=== PATIENT | female | born 1940 | race Caucasian/White ===

== ENCOUNTER 2017-07-25 15:06 | Emergency (ER) | payer MEDICARE, BC ==
--- NOTE | 2017-07-25 17:12 | RAD ---
AP PELVIS: Indication: Fall with right sided body pain. FINDINGS: Surgical clips are seen in the right lower quadrant of the abdomen and within the pelvis. There is mi ld degenerative arthrosis of both hips. No definite displaced fracture is evident. Overlying bowel ga s slightly limits evaluation of the sacrum. If there is further clinical concern, CT evaluation of th e pelvis may be helpful to evaluate the sacrum for nondisplaced fracture. IMPRESSION: No definite acute osseous abnormality within limitations of the exam. POS: [facility]
--- NOTE | 2017-07-25 17:13 | RAD ---
THREE VIEWS OF THE RIGHT HAND: Comparison: None. History: Fall two weeks ago with pain in the thumb and hand. FINDINGS: Three views of the right hand shows no evidence of acute fracture or dislocation. There is joint spac e narrowing and osteophyte formation surrounding the interphalangeal joints of the fingers. There is also joint space narrowing and osteophyte formation at the first CMC joint. These findings are consis tent with osteoarthritis. Some of these finding in the index may be secondary to erosive osteoarthrit is. 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 POS: [facility]
== END 2017-07-25 16:25 | disposition home or self-care (01) ==
LOC: SCSER 15:06
DX: S70.01XA Contusion of right hip, initial encounter (principal); S30.1XXA Contusion of abdominal wall, initial encounter; S70.11XA Contusion of right thigh, initial encounter; S50.311A Abrasion of right elbow, initial encounter; I10 Essential (primary) hypertension; I25.10 Atherosclerotic heart disease of native coronary artery without angina pectoris; W18.30XA Fall on same level, unspecified, initial encounter
CPT/HCPCS: 72170

== ENCOUNTER 2017-08-25 09:53 | Emergency (ER) | payer MEDICARE, BC | END 2017-08-25 10:19 | disposition home or self-care (01) | LOC: SCSER 09:53 | DX: H10.9 Unspecified conjunctivitis (principal); L03.032 Cellulitis of left toe; I10 Essential (primary) hypertension; I25.10 Atherosclerotic heart disease of native coronary artery without angina pectoris | CPT/HCPCS: 99283 ==

== ENCOUNTER 2017-11-28 13:05 | Emergency (ER) | payer MEDICARE, BC ==
[2017-11-28 13:30] LABS: Bilirubin Negative (Negative); Blood, Urine Small (Negative); Glucose, Urine (Dipstick) Negative (Negative); Leukocyte Large (Negative); Nitrite Negative (Negative); Protein, Urine (Dipstick) Negative (Neg-Trace); Urobilinogen 0.2 mg/dL (0.2-1.0)
[2017-11-28 13:33] LABS: Clarity Hazy (Clear); Specific Gravity, Urine 1.008 (1.002-1.036)
[2017-11-28 13:39] LABS: Bacteria/HPF 2+ HPF (None Seen); WBC/HPF 21-50 HPF (0-3)
== END 2017-11-28 14:15 | disposition home or self-care (01) ==
LOC: SCSER 13:05
DX: N30.90 Cystitis, unspecified without hematuria (principal); E78.5 Hyperlipidemia, unspecified; I25.10 Atherosclerotic heart disease of native coronary artery without angina pectoris; I10 Essential (primary) hypertension
CPT/HCPCS: 81003; 81015; 99283

== ENCOUNTER 2017-12-07 13:04 | Emergency (ER) | payer MEDICARE, BC ==
[2017-12-07 14:04] LABS: Bilirubin Negative (Negative); Blood, Urine Negative (Negative); Clarity Clear (Clear); Glucose, Urine (Dipstick) Negative (Negative); Leukocyte Negative (Negative); Nitrite Negative (Negative); Protein, Urine (Dipstick) Negative (Neg-Trace); Urobilinogen 0.2 mg/dL (0.2-1.0)
[2017-12-07 14:06] LABS: Specific Gravity, Urine 1.006 (1.002-1.036)
== END 2017-12-07 14:40 | disposition home or self-care (01) ==
LOC: SCSER 13:04
DX: R30.0 Dysuria (principal); E78.5 Hyperlipidemia, unspecified; I25.10 Atherosclerotic heart disease of native coronary artery without angina pectoris; I10 Essential (primary) hypertension
CPT/HCPCS: 81003; 99283

== ENCOUNTER 2017-12-28 11:43 | Emergency (ER) | payer MEDICARE, BC ==
[2017-12-28] MEDS ORDERED: Adacel (T-DAP) 0.5 ML VIAL ONE (11:53)
[2017-12-28] MEDS ORDERED: Bacitracin Zinc 1 Packet ONE (11:56)
== END 2017-12-28 12:00 | disposition home or self-care (01) ==
LOC: SCSER 11:43
DX: L03.113 Cellulitis of right upper limb (principal); I10 Essential (primary) hypertension
CPT/HCPCS: 90471; 90715

== ENCOUNTER 2018-01-02 09:28 | Emergency (ER) | payer MEDICARE, BC | END 2018-01-02 09:47 | disposition home or self-care (01) | LOC: SCSER 09:28 | DX: L03.113 Cellulitis of right upper limb (principal); E78.5 Hyperlipidemia, unspecified; I25.10 Atherosclerotic heart disease of native coronary artery without angina pectoris; I10 Essential (primary) hypertension; Z79.899 Other long term (current) drug therapy; Z79.82 Long term (current) use of aspirin | CPT/HCPCS: 99282 ==

== ENCOUNTER 2018-01-10 11:06 | Emergency (ER) | payer MEDICARE, BC | END 2018-01-10 12:20 | disposition home or self-care (01) | LOC: SCSER 11:06 | DX: H92.01 Otalgia, right ear (principal); E78.5 Hyperlipidemia, unspecified; I25.10 Atherosclerotic heart disease of native coronary artery without angina pectoris; I10 Essential (primary) hypertension | CPT/HCPCS: 99282 ==

== ENCOUNTER 2018-02-19 12:41 | Emergency (ER) | payer MEDICARE, BC ==
[2018-02-19 13:19] LABS: Bilirubin Negative (Negative); Blood, Urine Small (Negative); Clarity Cloudy (Clear); Glucose, Urine (Dipstick) Negative (Negative); Leukocyte Large (Negative); Nitrite Negative (Negative); Protein, Urine (Dipstick) Trace mg/dL (Neg-Trace); Specific Gravity, Urine 1.007 (1.002-1.036); Urobilinogen 0.2 mg/dL (0.2-1.0); pH, Urine 5.5 (5.0-9.0)
[2018-02-19 13:30] LABS: WBC/HPF 21-50 HPF (0-3)
[2018-02-19 13:31] LABS: Bacteria/HPF 2+ HPF (None Seen)
== END 2018-02-19 14:01 | disposition home or self-care (01) ==
LOC: SCSER 12:41
DX: N30.00 Acute cystitis without hematuria (principal); E78.5 Hyperlipidemia, unspecified; I25.10 Atherosclerotic heart disease of native coronary artery without angina pectoris; I10 Essential (primary) hypertension; Z79.82 Long term (current) use of aspirin; Z79.899 Other long term (current) drug therapy
CPT/HCPCS: 81003; 81015; 87077; 87086; 87186; 99283

== ENCOUNTER 2018-03-28 12:36 | Emergency (ER) | payer MEDICARE, BC ==
--- NOTE | 2018-03-28 14:37 | RAD ---
CHEST TWO VIEWS: 03/28/2018 HISTORY: Dyspnea. Short of breath. Cough. COMPARISON: 08/22/2016 FINDINGS: There is pulmonary vascular prominence, stable. Stable prominence of the cardiac silhouette. Midlin e sternotomy wires are unchanged. No pneumothorax or pleural fluid. No focal consolidation or alveo lar edema. Coronary arterial stent material and/or calcification noted. IMPRESSION: No acute findings. Stable appearance of the chest. POS: [facility]
== END 2018-03-28 14:06 | disposition home or self-care (01) ==
LOC: SCSER 12:36
DX: J06.9 Acute upper respiratory infection, unspecified (principal); E78.5 Hyperlipidemia, unspecified; I25.10 Atherosclerotic heart disease of native coronary artery without angina pectoris; I10 Essential (primary) hypertension; Z79.899 Other long term (current) drug therapy; Z79.82 Long term (current) use of aspirin
CPT/HCPCS: 71046

== ENCOUNTER 2018-06-07 16:15 | Observation (INO) | payer MEDICARE, BC ==
[2018-06-07 17:06] LABS: Hemoglobin 11.3 g/dL (12.0-16.0); Mean Corpuscular HGB CONC 31.5 g/dL (32.0-36.0); Mean Corpuscular Hemoglobin 30.9 pg (27.0-31.0); Mean Corpuscular Volume 98.3 fL (78.0-98.0); Mean Platelet Volume 10.7 fL (7.4-10.4); Platelet Count 111 thou/uL (130-400); RBC Distribution Width 16.7 % (11.5-14.5); Red Blood Cell (RBC) Count 3.65 mill/uL (4.20-5.40); White Blood Cell (WBC) Count 10.8 thou/uL (4.8-10.8)
[2018-06-07 17:11] LABS: Anisocytosis SLIGHT = 6-15 cells (100X) (0-5/hpf); Band 2 % (5-11); Eosinophils 1 % (0-10); Hypochromia SLIGHT = 6-15 cells (100X) (0-5/hpf); Lymphocytes 7 % (21-51); MDiff Complete? YES; Monocytes 10 % (0-10); Neutrophil 79 % (42-75); Ovalocytes SLIGHT = 2-5 cells (100X) (0-1/hpf); Platelet Morphology Comment Appears Decreased
[2018-06-07 17:14] LABS: ALT (SGPT) 32 U/L (8-55); AST (SGOT) 39 U/L (5-34); Alkaline Phosphatase 85 U/L (40-150); Anion Gap 16 mmol/L (10-20); BUN (Urea Nitrogen) 16 mg/dL (9.8-20.1); Bilirubin, Total 1.9 mg/dL (0.2-1.2); CK (CPK) 148 U/L (29-168); Calc. Creatinine Clearance 0 mL/min (70-130); Calcium 9.4 mg/dL (7.8-10.44); Carbon Dioxide 26 mmol/L (23-31); Chloride 102 mmol/L (98-107); Estimated GFR-MDRD 53; Glucose 111 mg/dL (83-110); Lipase 11 U/L (8-78); Potassium 3.7 mmol/L (3.5-5.1); Sodium 140 mmol/L (136-145)
[2018-06-07] MEDS ORDERED: Nitroglycerin 2% Ointment 1 INCH/1 GM Packet ONE (17:25)
[2018-06-07] MEDS ORDERED: Aspirin Chewable 81 MG TAB ONE (17:25)
[2018-06-07] MEDS ORDERED: Furosemide 20 MG/2 ML VIAL ONE (17:25)
[2018-06-07 17:35] LABS: CKMB 1.2 ng/mL (0-6.6)
--- NOTE | 2018-06-07 18:03 | RAD ---
CHEST ONE VIEW: 06/07/18 HISTORY: Dyspnea. COMPARISON: Radiograph 03/28/18. FINDINGS: The heart size is enlarged. Small effusions. Mild pulmonary edema. No pneumothorax. No acute osseous abnormality. Multiple midline sternotomy wires. IMPRESSION: Findings suggesting decompensated congestive heart failure. POS: [facility]
[2018-06-07 18:08] LABS: Bilirubin Small (Negative); Blood, Urine Moderate (Negative); Glucose, Urine (Dipstick) Negative (Negative); Leukocyte Trace (Negative); Nitrite Negative (Negative); Protein, Urine (Dipstick) > or equal to 300 mg/dL (Neg-Trace); Specific Gravity, Urine 1.015 (1.005-1.030)
[2018-06-07 18:09] LABS: Clarity Hazy (Clear)
[2018-06-07 18:10] LABS: Bacteria/HPF 1+ HPF (None Seen); WBC/HPF 0-3 HPF (0-3)
[2018-06-07] MEDS ORDERED: Acetaminophen 325 MG TAB ONE (22:30)
[2018-06-08 02:06] LABS: Troponin I 0.082 ng/mL (< 0.028)
[2018-06-08] MEDS ORDERED: Furosemide 20 MG/2 ML VIAL ONE (08:16)
[2018-06-08] MEDS ORDERED: Amlodipine 5 MG TAB ONE (08:16)
[2018-06-08] MEDS ORDERED: Aspirin Chewable 81 MG TAB ONE (08:16)
[2018-06-08] MEDS ORDERED: Ondansetron PF 4 MG/2 ML Vial ONE (08:31)
[2018-06-08] MEDS ORDERED: Acetaminophen 325 MG TAB ONE (08:39)
--- NOTE | 2018-06-08 13:26 | CT ---
CT ANGIOGRAM CHEST WITH CONTRAST: Date: 06/08/18 HISTORY: Shortness of breath. Elevated D-Dimer. COMPARISON: Chest radiograph prior day. FINDINGS: CT angiogram chest performed after the intravenous administration of contrast. 3D rendering is provid ed. The pulmonary arteries are mildly dilated. There is no proximal segmental pulmonary arterial filling defect. Heart size is enlarged. There is reflux of contrast in suprahepatic IVC. Left renal arterial stent is in place with an atrophic left kidney, likely vascular in nature. The celiac trunk and superior mese nteric arteries are patent where seen. Heart size is markedly enlarged. No significant pericardial effusion. Extensive interstitial and developing alveolar edema. Moderate right and mild left-sided pleural effu sions. No acute osseous abnormality. Multiple midline sternotomy wires. IMPRESSION: Decompensated congestive heart failure. No pulmonary embolism. POS: [facility]
[2018-06-08] MEDS ORDERED: ISOVUE-370 76%-LOCM 1 ML ONE (13:36)
[2018-06-08 14:02] VITALS: BMI 22.6
[2018-06-08] MEDS ORDERED: Ondansetron ODT 4 MG TAB PO PRN (15:13)
[2018-06-08] MEDS ORDERED: Senokot S 8.6-50 MG TAB PO PRN (15:13)
[2018-06-08] MEDS ORDERED: Ondansetron PF 4 MG/2 ML Vial IVP PRN (15:13)
[2018-06-08] MEDS ORDERED: Furosemide 20 MG/2 ML VIAL SLOW IVP SCH (15:15)
[2018-06-08 15:28] LABS: #Basophils 0.1 thou/uL (0.0-0.2); #Neutrophils 8.8 thou/uL (1.40-6.50); %Basophils 0.5 % (0.0-1.0); %Eosinophils 0.3 % (0.0-10.0); %Lymphocytes 9.5 % (21.0-51.0); %Monocytes 9.3 % (0.0-10.0); %Neutrophils 80.4 % (42.0-75.0); Hemoglobin 10.4 g/dL (12.0-16.0); Mean Corpuscular HGB CONC 33.2 g/dL (32.0-36.0); Mean Corpuscular Hemoglobin 32.1 pg (27.0-31.0); Mean Corpuscular Volume 96.7 fL (78.0-98.0); Mean Platelet Volume 11.3 fL (7.4-10.4); Platelet Count 92 thou/uL (130-400); RBC Distribution Width 15.9 % (11.5-14.5); Red Blood Cell (RBC) Count 3.25 mill/uL (4.20-5.40)
[2018-06-08 15:45] LABS: Anion Gap 14 mmol/L (10-20); BUN (Urea Nitrogen) 21 mg/dL (9.8-20.1); Calc. Creatinine Clearance 52 mL/min (70-130); Calcium 8.6 mg/dL (7.8-10.44); Carbon Dioxide 27 mmol/L (23-31); Chloride 102 mmol/L (98-107); Estimated GFR-MDRD 57; Glucose 102 mg/dL (83-110); Potassium 4.1 mmol/L (3.5-5.1); Sodium 139 mmol/L (136-145)
--- NOTE | 2018-06-08 16:44 | HP ---
CHIEF COMPLAINT: Shortness of breath, left lateral chest pain x4 days. HISTORY OF PRESENT ILLNESS: Ms. Rodriguez is a very pleasant 78-year-old woman with a history of heart failure, coronary artery disease, CABG x3, cardiac stents x2 in August 2016, and hypertension. She presents complaining of intermittent left lower lateral stabbing chest pain that started on Monday evening and woke her from her sleep. The patient states it felt like a stabbing pain, which she rated a 7/10 in severity. She thought it may have been attributed to drinking a lot of cokes due to the carbonation and decided to switch to water. Her symptoms continued and she developed shortness of breath. This prompted her to seek medical attention yesterday and presented to the [facility] ER. She was noted to have low sats, therefore, placed on 2 L of oxygen. She underwent a chest x-ray that showed findings suggesting decompensated CHF with small effusions and mild pulmonary edema. The heart appeared enlarged. Laboratory studies done yesterday were notable for a BNP of 1096.2. Serial troponins were elevated at 0.096, 0.110, and 0.082. The patient was referred for admission for continued management. The patient states she follows with Dr. Oconnell, who she was supposed to see several months ago. She had got a notification for rescheduling of her appointment, which is actually scheduled for this upcoming Monday, June 11, 2018. REVIEW OF SYSTEMS: She denies having any recent cough or hemoptysis. She has not had any fevers, chills, or sweats. She states she has been in her usual state of health up until Monday. She reports having a poor appetite at baseline with minimal clear fluid intake. She reports drinking coffee, a lot of Coke, and tea. She denies having any nausea or vomiting until this morning. She states she was not hungry and forcefully ate breakfast, which made her feel nauseated immediately. No further vomiting since then. Denies having any associated abdominal pain. Denies having any changes with her bowels. She normally suffers from constipation and had a small hard bowel movement yesterday. She does not normally take anything for this as she states she can sometimes experience diarrhea when eating milk products accidentally and prefers to be constipated rather than having loose stools. Denies having any melena or bright red blood per rectum. Denies having any urinary symptoms such as dysuria, hematuria, urgency, or frequency. All other review of systems are negative. Of note, she did experience one episode of epistaxis earlier today, which was attributed to irritation from the nasal cannula. This resolves quickly and has not recurred since. PAST MEDICAL HISTORY: 1. Hypertension. 2. Hypercholesterolemia. 3. Hypothyroidism. 4. Previous smoker. 5. Renal artery stenosis, status post left renal artery stent placement. 6. Mild mitral regurgitation. 7. Status post CABG x3. 8. Status post cardiac stents x2, August 2016. 9. [id number] aortic insufficiency. 10. Chronic kidney disease. 11. Constipation. SOCIAL HISTORY: The patient lives with her daughter. She is fully independent. She is a previous smoker. Denies any alcohol use or illicit drug use. ALLERGIES: 1. SULFA. 2. ACETAMINOPHEN. 3. CEPHALEXIN. 4. CODEINE. 5. HYDROCODONE. 6. LEVOFLOXACIN. 7. MORPHINE. CURRENT MEDICATIONS: 1. Levothyroxine. 2. Calcium carbonate. 3. Allopurinol. 4. Metoprolol. 5. Furosemide. 6. Zetia. 7. Amlodipine. 8. Lisinopril. 9. Famotidine. 10. Atorvastatin. 11. Aspirin. PHYSICAL EXAMINATION: GENERAL: The patient appears well developed, well nourished, in no acute distress. VITAL SIGNS: Temperature 98.2, pulse 68, respirations 20, O2 sats 94% on room air, and blood pressure 148/67. HEENT: Normocephalic and atraumatic. Pupils are equal, round, and reactive to light. Sclerae are without icterus. Oropharynx is clear. NECK: Supple. Full range of motion. LUNGS: Clear to auscultation bilaterally. No tenderness of left lateral chest wall with palpation. CARDIAC: Regular rate and rhythm. ABDOMEN: Soft, nontender, and nondistended. No guarding or rigidity. No renal angle tenderness. EXTREMITIES: No clubbing, cyanosis, or edema. No calf tenderness. NEUROLOGIC: Alert and oriented x3. SKIN: Without rash or jaundice. Pain, 0/10 at present. LABORATORY DATA: White blood count 10.8, hemoglobin 11.3, hematocrit 35.8, platelets 111. Potassium 3.7, sodium 140, BUN 16, creatinine 1.01. GFR 53. Lactic acid 1.7. Total bilirubin 1.9. BNP 1096.2, lipase 11, and albumin 4.0. Urinalysis notable for greater than or equal to 300, moderate blood, urobilinogen 2.0, leukocyte esterase trace, 7 to 10 squamous epithelial cells, and +1 urine bacteria. IMAGING DATA: Chest x-ray on 06/07/2018. Heart size is enlarged. Small effusions. Mild pulmonary edema, but no pneumothorax. Findings suggesting decompensated CHF. IMPRESSION AND PLAN: Ms. Rodriguez is a pleasant 78-year-old woman admitted for management of the following. 1. Shortness of breath and chest pain. Seems to be related to decompensated congestive heart failure. A CT angiogram was done given the elevated D-dimer and low sats, but this did not show any pulmonary embolism. There were findings suggesting decompensated congestive heart failure. Heart size is markedly enlarged with no significant pericardial effusion. Extensive interstitial developing alveolar edema. Moderate right and mid left-sided pleural effusions. The patient is without any clinical signs of fluid overload. Lungs are clear and no peripheral edema present. We will give Lasix 20 mg IV x1. Consult placed with Cardiology and echo requested. 2. Hypertension. Continue home medications and monitor blood pressure. 3. Hyperlipidemia. Resume home medications. 4. Constipation. MiraLAX p.o. daily. 5. Gastrointestinal prophylaxis. 6. Deep venous thrombosis prophylaxis. 7. Full code status. Surrogate decision maker is her daughter, Rhonda Ernst. The patient's case was discussed with Dr. Velázquez, who agrees with plan of care as described above. Job ID: [id number]
[2018-06-08] MEDS: Famotidine/PF 20 mg/2ml Vial SLOW IVP SCH (20:56)
[2018-06-08] MEDS ORDERED: Lisinopril 10 MG TAB PO SCH (21:00)
--- NOTE | 2018-06-09 00:31 | CON ---
DATE OF CONSULTATION: 06/08/2018 INDICATION FOR CONSULTATION: A 78-year-old female with atypical chest pain with history of coronary artery disease and slight abnormalities of the cardiac enzymes. HISTORY OF PRESENT ILLNESS: This is a very pleasant 78-year-old female who does have a history of coronary artery disease. She has undergone cardiac catheterization in the past. She has had stent placements in the past. She believes she may have also had a renal artery stenosis and underwent stent placement at that time also. She has multiple risk factors for progression of disease such as hypertension, hypercholesterolemia. She has had bypass surgery. She also has renal insufficiency and moderate aortic valve regurgitation as well as diastolic dysfunction. She was admitted to the hospital after she had some atypical chest pain which she describes as being sharp, stabbing pains on the left side of her chest along the midaxillary line. She had been undergoing some rehab in the past also due to some arthritis in her neck and she did not have any significant shortness of breath or other associated symptoms with the discomfort, but did have some confusion apparently and was brought to the emergency room and admitted here for further evaluation and treatment. At this time, she remains relatively stable. She has no complaints at this time. She says she has had no further chest pain. Her BNP was elevated at 1096. Her first troponin I was 0.096 and then it increased up to 0.11, is now back down to 0.82 and the MBs have remained normal. At this time, she is relatively comfortable. Her EKG shows a sinus rhythm. Occasionally, she does have bigeminy with a somewhat bradycardic heart rate. On admission, she was about 73 beats per minute, but she has dropped down to low rates with the ventricular bigeminy, but has been relatively asymptomatic. She says she has had irregular beats in the past. PAST MEDICAL HISTORY: Please refer the notes dictated by the nurse practitioner as well as review of systems. SOCIAL HISTORY: Please refer the notes dictated by the nurse practitioner as well as review of systems. FAMILY HISTORY: Please refer the notes dictated by the nurse practitioner as well as review of systems. REVIEW OF SYSTEMS: Please refer the notes dictated by the nurse practitioner as well as review of systems. MEDICATIONS: Please refer the notes dictated by the nurse practitioner as well as review of systems. ALLERGIES: PLEASE REFER THE NOTES DICTATED BY THE NURSE PRACTITIONER WELL REVIEW OF SYSTEMS. LABORATORY DATA: Please refer the notes dictated by the nurse practitioner as well as review of systems. PHYSICAL EXAMINATION: GENERAL: Reveals an elderly female, very pleasant, no acute distress. VITAL SIGNS: Her blood pressure is 130/60, heart rate is 64 and regular, occasional PVCs. She is afebrile. O2 saturations are 96%. Respiratory rate is 20. HEENT: Shows the head to be normocephalic and atraumatic. Carotid pulses are present. Did not hear any significant bruits. CHEST: Clear to auscultation. There were no rales, rhonchi, or wheezing noted. CARDIOVASCULAR: Reveals a regular rate and rhythm with occasional ectopy. CHEST: Clear to auscultation. ABDOMEN: Soft and nontender. Positive bowel sounds are present. She has a well-healed midline surgical incision after median sternotomy. EXTREMITIES: Show no clubbing, cyanosis, or edema. NEUROLOGIC: She appears to be intact. I do not see any gross focal motor deficits. SKIN: Warm and dry. IMPRESSION: 1. Atypical chest pain with slight increase in cardiac enzymes, which still remains indeterminate. We will continue to follow the patient. Her pain is in the left lateral wall in the midaxillary line, which most likely is not compatible with her coronary artery disease. She describes as being a sharp, stabbing pain. She has had no further chest pain since being in the hospital. She appears to be back to her baseline as far as mentation is concerned. 2. Coronary artery disease. She has a history of coronary disease with angioplasty, stent placements, and bypass surgery. Her last echocardiogram that I can see has been in June 2016, 2 years ago, at which time, her ejection fraction was about 45% to 50% with some moderate mitral valve regurgitation and moderate aortic valve regurgitation. While she was here, we will repeat the echocardiogram for further evaluation. She was last seen in the office in September of 2017. At that time, she did not have any new complaints. Her had back in 2017 and I believe she was living alone at that time. Her daughter lives not far away. 3. History of palpitations. This is nothing new for this patient. She has had some monitors in the past and she has had some occasional PVCs. She did have one history of SVT. Previously, she underwent a cardiac catheterization. She has hypercholesterolemia and also she will continue on her present medications. She also has some mitral and aortic valve regurgitation. We will repeat the echocardiogram for further evaluation. She also has chronic kidney disease, but her creatinine appears to be stable at 1.01. We will continue to follow the patient with you, but at this time, she appears to be stable from a cardiac standpoint. We could consider a repeat stress test in this lady prior to discharge or it could be done as an outpatient if there are no other changes in her cardiac enzymes or her symptoms. Job ID: [id number]
[2018-06-09 05:43] LABS: #Eosinphils 0.1 thou/uL (0.0-0.7); #Lymphocytes 0.9 thou/uL (1.20-3.40); #Monocytes 0.9 thou/uL (0.11-0.59); #Neutrophils 6.9 thou/uL (1.40-6.50); %Basophils 0.2 % (0.0-1.0); %Eosinophils 1.2 % (0.0-10.0); %Lymphocytes 10.4 % (21.0-51.0); %Monocytes 10.1 % (0.0-10.0); %Neutrophils 78.1 % (42.0-75.0); Hemoglobin 10.5 g/dL (12.0-16.0); Mean Corpuscular HGB CONC 33.8 g/dL (32.0-36.0); Mean Corpuscular Hemoglobin 32.2 pg (27.0-31.0); Mean Corpuscular Volume 95.3 fL (78.0-98.0); Mean Platelet Volume 10.7 fL (7.4-10.4); Platelet Count 134 thou/uL (130-400); RBC Distribution Width 15.9 % (11.5-14.5); Red Blood Cell (RBC) Count 3.25 mill/uL (4.20-5.40); White Blood Cell (WBC) Count 8.9 thou/uL (4.8-10.8)
[2018-06-09] MEDS ORDERED: Levothyroxine Sodium 25 MCG TAB PO SCH (06:00)
[2018-06-09 06:11] LABS: Anion Gap 15 mmol/L (10-20); BUN (Urea Nitrogen) 21 mg/dL (9.8-20.1); Calc. Creatinine Clearance 44 mL/min (70-130); Calcium 8.8 mg/dL (7.8-10.44); Carbon Dioxide 29 mmol/L (23-31); Chloride 99 mmol/L (98-107); Estimated GFR-MDRD 48; Glucose 103 mg/dL (83-110); Sodium 140 mmol/L (136-145)
[2018-06-09 06:17] LABS: Potassium 2.8 mmol/L (3.5-5.1)
[2018-06-09] MEDS ORDERED: Potassium Chloride 20 MEQ TAB PO SCH ×2 (06:45→10:45)
[2018-06-09] MEDS ORDERED: Potassium Chloride 10 MEQ in Premix Bag 1 BAG IVPB SCH (08:00)
[2018-06-09] MEDS: Famotidine/PF 20 mg/2ml Vial SLOW IVP SCH (08:30)
[2018-06-09] MEDS ORDERED: Aspirin 81 mg Enteric Coated Tablet PO SCH (09:00)
[2018-06-09] MEDS ORDERED: Amlodipine 5 MG TAB PO SCH (09:00)
[2018-06-09] MEDS ORDERED: Ezetimibe 10 MG TAB PO SCH (09:00)
[2018-06-09] MEDS ORDERED: Lisinopril 10 MG TAB PO SCH (09:00)
[2018-06-09] MEDS ORDERED: Furosemide 20 MG TAB PO SCH (09:00)
[2018-06-09] MEDS ORDERED: Calcium Carbonate 500 MG TAB PO SCH (09:00)
[2018-06-09] MEDS ORDERED: Enoxaparin Sodium 30 MG/0.3 ML SYRINGE SC SCH (09:00)
[2018-06-09] MEDS ORDERED: Allopurinol 300 MG TAB PO SCH (09:00)
[2018-06-09] MEDS ORDERED: Acetaminophen 325 MG TAB PO PRN (09:55)
--- NOTE | 2018-06-09 10:25 | PDOC.CTH ---
Cardiology Progress Note - Subjective The pt seen and examined. No overnight events. No cardiac complaints. - Objective Vital Signs Temp Pulse Resp BP BP Pulse Ox 06/09/18 08:30 134/59 L 06/09/18 08:29 61 134/59 L 06/09/18 07:25 98.4 F 61 20 134/59 L 94 L 06/09/18 03:36 98.5 F 69 12 142/67 H 91 L 06/09/18 00:00 98.1 F 76 12 147/65 H 94 L Weight 141 lb 8 oz 06/08/18 06/09/18 06/10/18 06:59 06:59 06:59 Intake Total 860 120 Output Total 900 Balance -40 120 - Physical Examination General/Neuro: alert & oriented x3 Neck: no JVD present Lungs: CTA Heart: RRR Abdomen: soft Extremities: other: (No edema) - Telemetry Telemetry Rhythm: SR - Labs Result Diagrams: 06/09/18 05:00 06/09/18 05:00 Troponin/CKMB CK-MB (CK-2) 1.2 ng/mL (0-6.6) 06/07/18 16:50 Troponin I 0.082 ng/mL (< 0.028) H 06/08/18 01:40 - Assessment/Plan 1. Acute on chronic diastolic HF - improving with Lasix 20mg IV qd, which was changed to PO. On BBlocker, PAMELA, and Lasix. 2. CAD with hx of stent and CABG - stable; On BBlocker, ASA, Statin, 3. S/p SVT - No more SVT events. 4. HTN - well controlled. 5. CKD - stable 6. Hyperlipidemia - on Statin MAR reviewed * From Cardiac standpoint, the pt is stable to d/c home once the pt does not have SOB with RA. * The pt will F/u with Dr Ramos within 10 days. Pt. seen and eval. by me. I agree with the A/P by the [employer]. Chest clear. RRR. Walking without symptoms. O2 being tapered. Ok to d/c if O2 sat stable off O2. See echo report. gjm Review of Systems - Review of Systems Constitutional: reports: no symptoms reported EENTM: reports: no symptoms reported Respiratory: reports: no symptoms reported Cardiac (ROS): reports: no symptoms reported ABD/GI: reports: no symptoms reported : reports: no symptoms reported Musculoskeletal: reports: no symptoms reported Skin: reports: no symptoms reported
[2018-06-09 11:28] VITALS: BP 118/53; TEMP 98.5
[2018-06-09] MEDS ORDERED: Atorvastatin Calcium 40 MG TAB PO SCH (21:00)
--- NOTE | 2018-06-11 04:10 | CON ---
DATE OF CONSULTATION: PRIMARY CARE PHYSICIAN: Dr. Caden Hilton. PRIMARY TELEPHONE TRIAGE NURSE: Dr. Jordan Ramos. REASON FOR CARDIOLOGY CONSULTATION: Decompensated heart failure. HISTORY OF PRESENT ILLNESS: Ms. Rodriguez is a 78-year-old female with significant history of coronary artery disease with CABG x3 in 2014, bare-metal stent placement in August 2016, chronic diastolic heart failure, hypertension, chronic kidney disease type 2, and chronic neck arthritis. On the Monday night, she wake up due to the severe sharp and stabbing pinpoint pain to the left lateral chest wall. She administered Tylenol, in which the patient's condition is better resolved. However, yesterday, she has had intermittent sharp pain or discomfort to the site, and also, she has complained of severe shortness of breath over the few weeks, and yesterday, she thought she is losing her mind and she could not think straight, so she called her daughter who took the patient to the emergency department for further evaluation and treatment. According to family member, she was very confused yesterday. After the patient was given some Lasix at the ER, the patient's condition, especially the breathing condition improved. At this moment, the patient is alert and oriented x4. According the patient's family member, the patient sometimes skip Lasix due to morning physical therapies, exercise, or samaritan, and she forgets to take the medicine in the afternoon or sometimes she took the Lasix middle of the night and she is very exhausted the next day and she forget to take the Lasix, and also she has not exercised well since February 2017 as the patient's around that time. At this moment, the patient denied any chest pain or discomfort to the chest or lateral wall, dizziness, lightheadedness, or any cardiac complaints at this moment. The patient had echocardiogram done in June 2016 with EF of 45% to 50%, mild bilateral atrial enlargement, moderate mitral valve regurgitation, moderate aortic valve regurgitation, moderate tricuspid regurgitation, and moderate pulmonic valve regurgitation. The patient underwent CABG x3 in 2014 with DUEÑAS to LAD and SVG to diagonal 1 and OM. The patient also had a bare-metal stent placement in proximal to mid LAD in August 2016. Also, the cath report shows 30% of stenosis in the MCA, 100% of stenosis in the diagonal 1, 50% of stenosis in proximal left circumflex, 60% of stenosis in the distal left circumflex, and 30% in the proximal RCA. Also, the patient underwent left renal stent in June 2010. PAST MEDICAL HISTORY: 1. Coronary artery disease. 2. Hypertension. 3. Hyperlipidemia. 4. Osteoarthritis. 5. [id number] aortic insufficiency. 6. Chronic diastolic dysfunction. 7. Chronic kidney disease stage 2. 8. Hypothyroidism. 9. Chronic neck arthritis and varicose vein. She wear compression stockings every day. PAST SURGICAL HISTORY: CABG x3 in 2014 with DUEÑAS to LAD, SVG to diagonal 1 and OM; stent placement in the LAD in August 2016; left renal stent placement in June 2010; cholecystectomy; hysterectomy; tonsillectomy; cataract surgery; left fracture secondary to fall in 2015. FAMILY HISTORY: The patient's father due to colon/esophageal cancer at the age of 50s. The patient's mother due to myocardial infarction at the age of 74. SOCIAL HISTORY: She is a . She lives by herself. She quit EtOH and tobacco abuse in 1991. She denies illicit drug abuse. She used to drink at least 3 Coke a day until 1 week ago. She does not do the regular exercise. She does not watch her diet. She usually however meat and fruits. ALLERGIES: PLEASE REFER TO THE PATIENT'S MEDICAL RECORD. SHE IS ALLERGIC TO MILK ALSO, WHICH CAUSES DIARRHEA. HOME MEDICATIONS: 1. Atorvastatin 80 mg once a day. 2. Lisinopril 20 mg once a day. 3. Lasix 20 mg once a day. 4. Toprol 100 mg once a day. 5. Aspirin 81 mg once a day. 6. Levothyroxine 25 mcg once a day. 7. Calcium 500 mg once a day. 8. Allopurinol 300 mg once a day. 9. Pepcid 40 mg once a day. 10. Norvasc 5 mg once a day. 11. Lisinopril 10 mg once a day. 12. Zetia 5 mg once a day. REVIEW OF SYSTEMS: Twelve-point review of systems negative unless otherwise mentioned in the HPI. She sleeps on the recliner or sofa due to severe gag reflex, which causes worsening shortness of breath when she sleeps on the supine position or lying flat. PHYSICAL EXAMINATION: VITAL SIGNS: Blood pressure 148/67; temperature 98.2; pulse is 68, sinus rhythm; respiratory rate 20; and O2 saturation 94% with 2 L nasal cannula. GENERAL: The patient is alert and oriented x4, not in acute distress. HEENT: Normocephalic and atraumatic. Eyes, extraocular muscle movement intact. ENT and mouth, oral and nasal mucosa moist without lesion. NECK: Normal range of motion. Neck is supple. No JVD. RESPIRATORY: Clear to auscultate bilaterally, but diminished at the bases. CARDIOVASCULAR: Regular rate and rhythm with occasional skipping beats. There is significant murmur to the apex area. 2+ pulses in bilateral upper and lower extremities. No edema in the lower extremities. SKIN: Warm and dry. No lesion, rash, or erythema noticed. ABDOMEN: Soft, nontender. No mass to palpitate. Bowel sounds are present. MUSCULOSKELETAL: The patient is able to move all extremities without difficulty. The patient denied claudication. NEUROLOGIC: The patient is alert and oriented x4 at this moment and nonfocal. PSYCHIATRIC: The patient's mood is appropriate. DIAGNOSTIC STUDIES: 12-lead EKG at the ER shows normal sinus rhythm; anterior infarct, only one lead; heart rate 73. Chest x-ray shows decompensated congestive heart failure, but other than that no acute abnormality. The patient had CTA chest and thoracic due to elevated D-dimer, which shows no pulmonary embolism; however, showing decompensated congestive heart failure. Echocardiogram was ordered and the result is pending at this moment. LABORATORY DATA: WBC 11.0, hemoglobin 10.4, hematocrit 31.4, platelets 92. D-dimer 0.88. Sodium 140, potassium 3.7, BUN is 16, creatinine 1.01, glucose 111. Lactic acid is 1.7. AST 39, ALT 32. CK-MB 1.2. Troponin 0.096, 0.110, 0.082. BNP 1096. ASSESSMENT AND PLAN: 1. Acute on chronic heart failure. Most likely, the patient is having diastolic dysfunction. Echocardiogram was ordered and the result is pending at this moment. Her condition is stable after the patient received 2 doses of Lasix IV at the ER. She is on Lasix 20 mg p.o. daily and she is on PAMELA inhibitor 20 mg once a day. She is on the beta-tramaine, which we would like to resume with low dose for at this moment. 2. Atypical chest pain. Symptom the patient describes is most likely from musculoskeletal in nature. Tylenol improved the patient's discomfort. The 12-lead EKG has not showed any ST-segment change or T-wave inversion. We would like to continue to monitor on the telemetry at this moment. 3. Coronary artery disease with history of coronary artery angioplasty status. The patient's condition is stable at this moment. She is on the telemetry. The patient is on aspirin 81 mg once a day, atorvastatin 80 mg once a day. At this moment, we would like to go ahead to resume the beta-tramaine with low dose. 4. Hypertension. The patient's blood pressure is slightly elevated. Again, we would likely resume the patient's beta-tramaine. 5. History of moderate mitral valve regurgitation. The patient's echocardiogram in June 2016 shows moderate mitral valve regurgitation. The patient has echocardiogram ordered. We are waiting for the results at this moment. The patient is asymptomatic. 6. Chronic kidney disease. The patient's renal function level is stable at this moment. We would like to continue to monitor. Thank you for allowing the Cardiology Service to participate in the care of this patient. We will follow along the care team and make further recommendations as appropriate. Job ID: [id number]
--- NOTE | 2018-06-11 13:39 | DIS ---
DATE OF ADMISSION: 06/07/2018 DATE OF DISCHARGE: 06/09/2018 DISCHARGE DIAGNOSES: 1. Acute hypoxic respiratory failure. 2. Acute on chronic diastolic congestive heart failure. 3. Non-ST segment elevation myocardial infarction type 2 secondary to demand ischemia. 4. Hypertension. 5. Hyperlipidemia. 6. Hypokalemia. HISTORY OF PRESENT ILLNESS: This patient is a 78-year-old female, who presented to [facility] ER with complaints of shortness of breath and chest pain over several days prior to her presentation. The patient had a chest x-ray showing some evidence of decompensated heart failure with some pulmonary edema. BNP was 1096 and troponins were borderline elevated at 0.096, 0.011, and 0.082. The patient was subsequently admitted to observation status for chest pain and decompensated failure. She responded well. HOSPITAL COURSE: The patient responded well to IV Lasix and her breathing improved. Her CT was reviewed, showed no evidence of pulmonary embolus. She was seen in consultation by Cardiology, who recommended repeat echocardiogram. This revealed EF of 60% to 65% with diastolic dysfunction and restrictive filling pattern, was [id number] MR, moderate AR, moderate TR, and mild [place] were noted. The patient had some hypokalemia secondary to the diuresis, which was treated with supplementation. Cardiology felt the patient was stable for discharge and that her symptoms were atypical of angina. However, they did recommend the patient have outpatient followup to consider the possibility of stress testing at that time. PHYSICAL EXAMINATION: VITAL SIGNS: On the day of discharge, temperature is 98.5, pulse 65, respirations 12, O2 saturation 96% on room air, and BP 118/53. GENERAL: The patient is cooperative. HEART: Regular without murmurs. LUNGS: Clear bilaterally. ABDOMEN: Benign. EXTREMITIES: No edema. DISPOSITION: The patient is discharged home. ACTIVITY: She is to have activity as tolerated. DIET: She will be on a heart healthy, low-sodium diet. DISCHARGE MEDICATIONS: She will be on; 1. Atorvastatin 80 mg daily. 2. Lisinopril 20 mg q.a.m. 3. Metoprolol 100 mg daily. 4. Aspirin 81 mg daily. 5. Levothyroxine 25 mcg daily. 6. Calcium 500 mg daily. 7. Allopurinol 300 mg daily. 8. Pepcid 40 mg at bedtime. 9. Amlodipine 5 mg daily. 10. Lisinopril 10 mg at bedtime. 11. Metoprolol 100 mg at bedtime. 12. Zetia 5 mg daily. 13. Lasix 20 mg p.o. daily. 14. She was instructed on daily weights and titrating her Lasix appropriately. FOLLOWUP: She is to follow up with Dr. Bryant and Dr. Caden Hilton. She can return to the Emergency Department should she have any problems prior to that time. Job ID: [id number]
== END 2018-06-09 13:31 | disposition home or self-care (01) ==
LOC: SCSER 16:15 → ERHOLD 18:41 → 2SW 06-08 13:52
PROVIDERS: ADMIT Family Medicine; ATTEND Family Medicine
DX: I13.0 Hypertensive heart and chronic kidney disease with heart failure and stage 1 through stage 4 chronic kidney disease, or unspecified chronic kidney disease (principal); N18.2 Chronic kidney disease, stage 2 (mild); I50.33 Acute on chronic diastolic (congestive) heart failure; I25.10 Atherosclerotic heart disease of native coronary artery without angina pectoris; E78.00 Pure hypercholesterolemia, unspecified; I34.0 Nonrheumatic mitral (valve) insufficiency; I35.1 Nonrheumatic aortic (valve) insufficiency; E03.9 Hypothyroidism, unspecified; K59.00 Constipation, unspecified; M19.90 Unspecified osteoarthritis, unspecified site; Z95.1 Presence of aortocoronary bypass graft; Z95.5 Presence of coronary angioplasty implant and graft; Z87.891 Personal history of nicotine dependence; Z95.820 Peripheral vascular angioplasty status with implants and grafts; Z88.2 Allergy status to sulfonamides; Z88.5 Allergy status to narcotic agent; Z88.1 Allergy status to other antibiotic agents; Z90.89 Acquired absence of other organs; Z91.011 Allergy to milk products; Z79.82 Long term (current) use of aspirin; Z79.899 Other long term (current) drug therapy; Z88.0 Allergy status to penicillin
CPT/HCPCS: 71045; 71275; 80048 ×2; 80053; 82550; 82553; 83605; 83690; 83880; 84484 ×3; 85025 ×3; 85379; 87086; 87804 ×2; 93005; 93306; 94760; 96374; 96375; 96376 ×3; 99285; G0378 ×2; 36415; 36416; 81003; 81015; J1650; J1940; J2405; J3480; Q9966; S0028

== ENCOUNTER 2020-08-23 15:41 | Inpatient (IN) | payer MEDICARE, BC ==
[2020-08-23] MEDS ORDERED: Acetaminophen 325 MG TAB PO PRN (17:12)
[2020-08-23] MEDS ORDERED: Senokot S 8.6-50 MG TAB PO PRN (17:12)
[2020-08-23] MEDS ORDERED: Acetaminophen 650 MG Suppository PR PRN (17:12)
[2020-08-23] MEDS ORDERED: Nitroglycerin 0.4 MG TAB (25 Tab Bottle) SL PRN (17:12)
[2020-08-23] MEDS ORDERED: Sodium Chloride 0.45% 1,000 ML IV SCH (17:45)
[2020-08-23 18:03] LABS: Lactic Acid 1.4 mmol/L (0.5-2.2)
[2020-08-23 18:05] LABS: Magnesium 1.8 mg/dL (1.6-2.6)
[2020-08-23 18:28] LABS: CKMB 2.9 ng/mL (0-6.6)
[2020-08-23] MEDS ORDERED: Magnesium 2 GM/50 ML 2 GM in Premix Bag 1 BAG IVPB SCH (19:30)
[2020-08-23] MEDS ORDERED: Famotidine 20 MG TAB PO SCH (21:00)
[2020-08-23] MEDS: Lisinopril 10 MG TAB PO SCH (21:05)
[2020-08-23] MEDS: Allopurinol 300 MG TAB PO SCH (21:06)
[2020-08-23] MEDS: Atorvastatin Calcium 40 MG TAB PO SCH (21:06)
[2020-08-23] MEDS: Famotidine 20 MG TAB PO SCH (21:10)
[2020-08-24 05:09] LABS: #Eosinphils 0.2 thou/uL (0.0-0.7); #Lymphocytes 1.5 thou/uL (1.20-3.40); #Monocytes 0.6 thou/uL (0.11-0.59); #Neutrophils 3.7 thou/uL (1.40-6.50); %Basophils 0.2 % (0.0-1.0); %Eosinophils 2.6 % (0.0-10.0); %Lymphocytes 25.5 % (21.0-51.0); %Monocytes 9.8 % (0.0-10.0); Hemoglobin 11.3 g/dL (12.0-16.0); Mean Corpuscular HGB CONC 32.3 g/dL (32.0-36.0); Platelet Count 137 thou/uL (130-400); RBC Distribution Width 13.8 % (11.5-14.5); Red Blood Cell (RBC) Count 3.76 mill/uL (4.20-5.40)
[2020-08-24 05:34] LABS: ALT (SGPT) 30 U/L (8-55); AST (SGOT) 37 U/L (5-34); Albumin 3.4 g/dL (3.4-4.8); Alkaline Phosphatase 147 U/L (40-110); Bilirubin, Direct 0.4 mg/dL (0.1-0.3); Bilirubin, Total 0.7 mg/dL (0.2-1.2)
[2020-08-24 05:36] LABS: Anion Gap 10 mmol/L (10-20); BUN (Urea Nitrogen) 13 mg/dL (9.8-20.1); Calc. Creatinine Clearance 46 mL/min (70-130); Calcium 8.3 mg/dL (7.8-10.44); Carbon Dioxide 28 mmol/L (23-31); Cardiac Risk 2.8 (Less than 4.5); Chloride 107 mmol/L (98-107); Cholesterol 84 mg/dl (< 200 Desired); Glucose 88 mg/dL (83-110); HDL Cholesterol 30 mg/dL (>60 Neg Risk); LDL Cholesterol, Calculated 35 mg/dL; Lipase 32 U/L (8-78); Potassium 3.8 mmol/L (3.5-5.1); Sodium 141 mmol/L (136-145); Triglycerides 93 mg/dL (Less than 150)
[2020-08-24] MEDS: Levothyroxine Sodium 25 MCG TAB PO SCH (06:01)
[2020-08-24] MEDS: Aspirin 81 mg Enteric Coated Tablet PO SCH (08:36)
[2020-08-24] MEDS: Lisinopril 20 MG TAB PO SCH (08:36)
[2020-08-24] MEDS: Amlodipine 5 MG TAB PO SCH (08:37)
[2020-08-24] MEDS: Ezetimibe 10 MG TAB PO SCH (08:37)
[2020-08-24] MEDS: Allopurinol 300 MG TAB PO SCH ×2 (08:37→20:13)
[2020-08-24] MEDS ORDERED: Famotidine 20 MG TAB PO SCH (09:00)
[2020-08-24 10:31] LABS: CKMB 2.3 ng/mL (0-6.6)
[2020-08-24 17:51] VITALS: BMI 20.5
[2020-08-24] MEDS: Atorvastatin Calcium 40 MG TAB PO SCH (20:13)
[2020-08-24] MEDS: Lisinopril 10 MG TAB PO SCH (20:14)
[2020-08-24] MEDS: Famotidine 20 MG TAB PO SCH (20:14)
[2020-08-25] MEDS: Levothyroxine Sodium 25 MCG TAB PO SCH (05:23)
[2020-08-25] MEDS: Allopurinol 300 MG TAB PO SCH ×2 (06:43→20:36)
[2020-08-25] MEDS: Aspirin 81 mg Enteric Coated Tablet PO SCH (06:43)
[2020-08-25] MEDS: Lisinopril 20 MG TAB PO SCH (06:43)
[2020-08-25] MEDS: Amlodipine 5 MG TAB PO SCH (06:43)
[2020-08-25] MEDS: Ezetimibe 10 MG TAB PO SCH (06:43)
[2020-08-25] MEDS ORDERED: Lidocaine 1% (PF) 30 ML VIAL ONE (06:44)
[2020-08-25] MEDS ORDERED: Heparin 10,000 UNITS/ 10 ML VIAL ONE (06:44)
[2020-08-25] MEDS ORDERED: Sodium Chloride 0.9% 1,000 ML IV SCH ×2 (06:45→09:15)
[2020-08-25] MEDS ORDERED: Midazolam HCl 2 mg/2 ml Vial ONE (07:40)
[2020-08-25] MEDS ORDERED: Fentanyl 100 MCG/2 ML VIAL ONE (07:41)
[2020-08-25] MEDS ORDERED: Bivalirudin 250 MG VIAL ONE (08:33)
[2020-08-25] MEDS ORDERED: Iopamidol 370 76% 100 ML VIAL ONE (08:47)
[2020-08-25] MEDS ORDERED: Iopamidol 370 76% 50 ML VIAL FS ONE (08:47)
[2020-08-25] MEDS: Atorvastatin Calcium 40 MG TAB PO SCH (20:35)
[2020-08-25] MEDS: Famotidine 20 MG TAB PO SCH (20:36)
[2020-08-25] MEDS: Lisinopril 10 MG TAB PO SCH (20:36)
[2020-08-26 05:39] LABS: Anion Gap 11 mmol/L (10-20); BUN (Urea Nitrogen) 11 mg/dL (9.8-20.1); Calc. Creatinine Clearance 52 mL/min (70-130); Calcium 8.4 mg/dL (7.8-10.44); Carbon Dioxide 25 mmol/L (23-31); Chloride 107 mmol/L (98-107); Glucose 86 mg/dL (83-110); Potassium 4.2 mmol/L (3.5-5.1); Sodium 139 mmol/L (136-145)
[2020-08-26] MEDS: Levothyroxine Sodium 25 MCG TAB PO SCH (05:44)
[2020-08-26 06:01] LABS: Free T4 (Free Thyroxine) 1.05 ng/dL (0.70-1.48); Thyroid Stimulating Hormone 2.3151 uIU/mL (0.35-4.94)
[2020-08-26] MEDS: Aspirin 81 mg Enteric Coated Tablet PO SCH (07:50)
[2020-08-26] MEDS: Amlodipine 5 MG TAB PO SCH (07:50)
[2020-08-26] MEDS: Lisinopril 20 MG TAB PO SCH (07:50)
[2020-08-26] MEDS: Ezetimibe 10 MG TAB PO SCH (07:51)
[2020-08-26] MEDS: Allopurinol 300 MG TAB PO SCH ×2 (07:52→20:30)
[2020-08-26] MEDS: Famotidine 20 MG TAB PO SCH (20:30)
[2020-08-26] MEDS: Atorvastatin Calcium 40 MG TAB PO SCH (20:30)
[2020-08-26] MEDS: Lisinopril 10 MG TAB PO SCH (20:30)
[2020-08-27] MEDS: Levothyroxine Sodium 25 MCG TAB PO SCH (05:43)
[2020-08-27] MEDS: Allopurinol 300 MG TAB PO SCH (07:55)
[2020-08-27] MEDS: Amlodipine 5 MG TAB PO SCH (07:55)
[2020-08-27] MEDS: Ezetimibe 10 MG TAB PO SCH (07:55)
[2020-08-27] MEDS: Aspirin 81 mg Enteric Coated Tablet PO SCH (07:55)
[2020-08-27] MEDS: Lisinopril 20 MG TAB PO SCH (07:56)
[2020-08-27 08:07] VITALS: BP 154/70; TEMP 98
== END 2020-08-27 09:40 | disposition home or self-care (01) | DRG 281 ==
LOC: 2SW 15:44 → OBSVTOIN 08-24 19:04
PROVIDERS: ADMIT Internal Medicine; ATTEND Internal Medicine
PROC: 4A023N7 Measurement of Cardiac Sampling and Pressure, Left Heart, Percutaneous Approach (ICD-10-PCS; principal; 2020-08-25)
PROC: B2131ZZ Fluoroscopy of Multiple Coronary Artery Bypass Grafts using Low Osmolar Contrast (ICD-10-PCS; 2020-08-25)
PROC: B2111ZZ Fluoroscopy of Multiple Coronary Arteries using Low Osmolar Contrast (ICD-10-PCS; 2020-08-25)
DX: R07.89 Other chest pain (principal); I21.A1 Myocardial infarction type 2; I13.0 Hypertensive heart and chronic kidney disease with heart failure and stage 1 through stage 4 chronic kidney disease, or unspecified chronic kidney disease; E87.0 Hyperosmolality and hypernatremia; N17.9 Acute kidney failure, unspecified; I50.32 Chronic diastolic (congestive) heart failure; I25.10 Atherosclerotic heart disease of native coronary artery without angina pectoris; E03.9 Hypothyroidism, unspecified; E83.42 Hypomagnesemia; N18.2 Chronic kidney disease, stage 2 (mild); K59.00 Constipation, unspecified; E78.00 Pure hypercholesterolemia, unspecified; M19.90 Unspecified osteoarthritis, unspecified site; I08.0 Rheumatic disorders of both mitral and aortic valves; R00.1 Bradycardia, unspecified; I83.90 Asymptomatic varicose veins of unspecified lower extremity; D53.9 Nutritional anemia, unspecified; Z88.2 Allergy status to sulfonamides; Z88.1 Allergy status to other antibiotic agents; Z88.0 Allergy status to penicillin; Z88.5 Allergy status to narcotic agent; Z91.011 Allergy to milk products; Z79.82 Long term (current) use of aspirin; Z79.899 Other long term (current) drug therapy; Z95.1 Presence of aortocoronary bypass graft; Z90.710 Acquired absence of both cervix and uterus; Z90.49 Acquired absence of other specified parts of digestive tract; Z90.89 Acquired absence of other organs; Z95.5 Presence of coronary angioplasty implant and graft; Z87.891 Personal history of nicotine dependence; Z82.49 Family history of ischemic heart disease and other diseases of the circulatory system
CPT/HCPCS: 36415; 71045; 80048; 80053; 80061; 80076; 81003; 82553; 83605; 83690; 83735; 83880; 84439; 84443; 84481; 84484; 85025; 85347; 93005; 93010; 93459; 93571; 94760; 96365; 99152; 99153; C1769; G0378; J0153; J0583; J1644; J2001; J2250; J3010; J3475; Q9967

== ENCOUNTER 2020-12-22 11:01 | Outpatient (CLI) | payer MEDICARE, BC | END 2020-12-22 11:02 | disposition home or self-care (01) | LOC: BICULT 11:01 | PROVIDERS: ATTEND Internal Medicine Nephrology | DX: N18.30 Chronic kidney disease, stage 3 unspecified (principal) | CPT/HCPCS: 76770 ==

== ENCOUNTER 2021-02-17 17:16 | Inpatient (IN) | payer MEDICARE, BC ==
[2021-02-17 22:22] VITALS: BMI 20.8
[2021-02-17] MEDS ORDERED: Acetaminophen 325 MG TAB PO PRN (23:18)
[2021-02-17] MEDS ORDERED: Calcium Carbonate 500 MG ChewTAB PO PRN (23:18)
[2021-02-17] MEDS ORDERED: Senokot S 8.6-50 MG TAB PO PRN (23:18)
[2021-02-17] MEDS ORDERED: Ondansetron ODT 4 MG TAB PO PRN (23:18)
[2021-02-17] MEDS ORDERED: Nitroglycerin 0.4 MG TAB (25 Tab Bottle) SL PRN (23:25)
[2021-02-17] MEDS ORDERED: Electrolyte Replacement Protocol 1 EACH FS PRN (23:30)
[2021-02-18 01:37] LABS: CKMB 6.1 ng/mL (0-6.6)
[2021-02-18 04:17] LABS: Bacteria/HPF None Seen HPF (None Seen); Bilirubin Negative (Negative); Blood, Urine 1+ (Negative); Clarity Clear (Clear); Glucose, Urine (Dipstick) Normal (Negative); Ketone, Urine Negative (Negative); Leukocyte 75 Leu/uL (Negative); Nitrite Negative (Negative); Protein, Urine (Dipstick) 30 mg/dL (Neg-Trace); RBC/HPF 0-3 HPF (0-3); Specific Gravity, Urine 1.035 (1.002-1.036); Urobilinogen Normal mg/dL (Less than 2); pH, Urine 5.5 (5.0-9.0)
[2021-02-18 04:19] LABS: Urine Culture Reflex No No
[2021-02-18 04:58] LABS: #Eosinphils 0.2 thou/uL (0.0-0.7); #Lymphocytes 0.8 thou/uL (1.20-3.40); #Monocytes 0.6 thou/uL (0.11-0.59); %Basophils 0.5 % (0.0-1.0); %Lymphocytes 9.5 % (21.0-51.0); %Monocytes 6.7 % (0.0-10.0); %Neutrophils 81.4 % (42.0-75.0); Hemoglobin 9.7 g/dL (12.0-16.0); Mean Corpuscular Hemoglobin 31.3 pg (27.0-31.0); Mean Corpuscular Volume 94.9 fL (78.0-98.0); Mean Platelet Volume 10.5 fL (7.4-10.4); Platelet Count 116 thou/uL (130-400); RBC Distribution Width 15.5 % (11.5-14.5); Red Blood Cell (RBC) Count 3.08 mill/uL (4.20-5.40); White Blood Cell (WBC) Count 8.6 thou/uL (4.8-10.8)
[2021-02-18 05:16] LABS: Anion Gap 11 mmol/L (10-20); BUN (Urea Nitrogen) 22 mg/dL (9.8-20.1); Calc. Creatinine Clearance 42 mL/min (70-130); Calcium 8.5 mg/dL (7.8-10.44); Carbon Dioxide 26 mmol/L (23-31); Chloride 105 mmol/L (98-107); Glucose 118 mg/dL (83-110); Potassium 3.5 mmol/L (3.5-5.1); Sodium 138 mmol/L (136-145)
[2021-02-18] MEDS: Atorvastatin Calcium 40 MG TAB PO SCH (09:31)
[2021-02-18] MEDS: Enoxaparin Sodium 40 MG/0.4 ML SYRINGE SC SCH (09:31)
[2021-02-18] MEDS: Furosemide 40 MG/4 ML VIAL SLOW IVP SCH (09:31)
[2021-02-18] MEDS: Ezetimibe 10 MG TAB PO SCH (09:32)
[2021-02-18] MEDS: Levothyroxine Sodium 25 MCG TAB PO SCH (09:32)
[2021-02-18] MEDS: Aspirin 81 mg Enteric Coated Tablet PO SCH (09:32)
[2021-02-18] MEDS: Lisinopril 20 MG TAB PO SCH (11:33)
[2021-02-18] MEDS: Loratadine 10 MG TAB PO SCH (11:33)
[2021-02-18] MEDS: Amlodipine 5 MG TAB PO SCH (11:33)
[2021-02-18] MEDS: Allopurinol 300 MG TAB PO SCH ×2 (11:33→20:28)
[2021-02-18 12:19] LABS: SARS-CoV-2 PCR by NAA Not Detected (NotDetected)
[2021-02-18] MEDS ORDERED: Potassium Chloride 20 MEQ TAB PO SCH (13:15)
[2021-02-18] MEDS ORDERED: Famotidine 20 MG TAB PO SCH (21:00)
[2021-02-19 04:54] LABS: #Eosinphils 0.2 thou/uL (0.0-0.7); #Monocytes 0.7 thou/uL (0.11-0.59); #Neutrophils 6.3 thou/uL (1.40-6.50); %Basophils 0.1 % (0.0-1.0); %Eosinophils 2.8 % (0.0-10.0); %Lymphocytes 12.3 % (21.0-51.0); %Monocytes 7.9 % (0.0-10.0); %Neutrophils 76.8 % (42.0-75.0); Hemoglobin 9.4 g/dL (12.0-16.0); Mean Corpuscular HGB CONC 32.9 g/dL (32.0-36.0); Mean Corpuscular Hemoglobin 30.6 pg (27.0-31.0); Mean Platelet Volume 9.6 fL (7.4-10.4); Platelet Count 129 thou/uL (130-400); RBC Distribution Width 15.5 % (11.5-14.5); Red Blood Cell (RBC) Count 3.08 mill/uL (4.20-5.40); White Blood Cell (WBC) Count 8.2 thou/uL (4.8-10.8)
[2021-02-19 05:13] LABS: Anion Gap 12 mmol/L (10-20); BUN (Urea Nitrogen) 28 mg/dL (9.8-20.1); Calc. Creatinine Clearance 33 mL/min (70-130); Calcium 8.1 mg/dL (7.8-10.44); Carbon Dioxide 24 mmol/L (23-31); Chloride 108 mmol/L (98-107); Glucose 89 mg/dL (83-110); Potassium 3.5 mmol/L (3.5-5.1); Sodium 140 mmol/L (136-145)
[2021-02-19] MEDS ORDERED: Potassium Chloride 20 MEQ TAB PO SCH (06:00)
[2021-02-19] MEDS: Lisinopril 20 MG TAB PO SCH (08:39)
[2021-02-19] MEDS: Levothyroxine Sodium 25 MCG TAB PO SCH (08:39)
[2021-02-19] MEDS: Atorvastatin Calcium 40 MG TAB PO SCH (08:39)
[2021-02-19] MEDS: Loratadine 10 MG TAB PO SCH (08:40)
[2021-02-19] MEDS: Enoxaparin Sodium 40 MG/0.4 ML SYRINGE SC SCH (08:40)
[2021-02-19] MEDS: Furosemide 40 MG/4 ML VIAL SLOW IVP SCH (08:40)
[2021-02-19] MEDS: Ezetimibe 10 MG TAB PO SCH (08:40)
[2021-02-19] MEDS: Amlodipine 5 MG TAB PO SCH (08:40)
[2021-02-19] MEDS: Allopurinol 300 MG TAB PO SCH (08:40)
[2021-02-19] MEDS: Aspirin 81 mg Enteric Coated Tablet PO SCH (08:40)
[2021-02-19 12:10] LABS: Iron 16 ug/dL (50-170); Iron Binding Capacity, Total 231 mcg/dL (265-497)
[2021-02-19 12:31] LABS: Ferritin 274.44 ng/mL (10-291)
[2021-02-19 15:52] VITALS: BP 119/66; TEMP 97.8
[2021-02-19] MEDS ORDERED: Cyanocobalamin 1000 MCG/ML VIAL IM SCH (16:15)
[2021-02-19] MEDS ORDERED: Iron Sucrose Complex 200 MG in Sodium Chloride 0.9% 100 ML IVPB SCH (16:15)
[2021-02-19] MEDS ORDERED: Iron, Sodium Ferric Gluconate 250 MG in Sodium Chloride 0.9% 250 ML 250 ML IVPB SCH (17:00)
== END 2021-02-19 21:38 | disposition home or self-care (01) | DRG 291 ==
LOC: 2NO 20:31
PROVIDERS: ADMIT Internal Medicine; ATTEND Internal Medicine
DX: I13.0 Hypertensive heart and chronic kidney disease with heart failure and stage 1 through stage 4 chronic kidney disease, or unspecified chronic kidney disease (principal); I50.33 Acute on chronic diastolic (congestive) heart failure; Z20.822 Contact with and (suspected) exposure to COVID-19; J96.01 Acute respiratory failure with hypoxia; E78.00 Pure hypercholesterolemia, unspecified; N18.30 Chronic kidney disease, stage 3 unspecified; M19.90 Unspecified osteoarthritis, unspecified site; I25.10 Atherosclerotic heart disease of native coronary artery without angina pectoris; D72.829 Elevated white blood cell count, unspecified; F41.9 Anxiety disorder, unspecified; R79.89 Other specified abnormal findings of blood chemistry; I08.0 Rheumatic disorders of both mitral and aortic valves; Z88.5 Allergy status to narcotic agent; Z88.0 Allergy status to penicillin; Z88.2 Allergy status to sulfonamides; Z88.8 Allergy status to other drugs, medicaments and biological substances; Z88.1 Allergy status to other antibiotic agents; Z91.011 Allergy to milk products; Z79.82 Long term (current) use of aspirin; Z79.890 Hormone replacement therapy; Z79.899 Other long term (current) drug therapy; Z95.1 Presence of aortocoronary bypass graft; Z95.5 Presence of coronary angioplasty implant and graft; Z90.710 Acquired absence of both cervix and uterus; Z90.49 Acquired absence of other specified parts of digestive tract; Z82.49 Family history of ischemic heart disease and other diseases of the circulatory system; Z87.891 Personal history of nicotine dependence
CPT/HCPCS: 36415; 80048; 81001; 82553; 82607; 82728; 82746; 83540; 83550; 83735; 83880; 84443; 85025; 93005; 93010; 93306; 93798; J1650; J1940; J2916; J3420; J7050; Q0162; U0003; U0005

== ENCOUNTER 2021-05-13 14:24 | Inpatient (IN) | payer MEDICARE, BC ==
[2021-05-13 16:16] VITALS: BMI 21.5
[2021-05-13] MEDS ORDERED: Nitroglycerin 0.4 MG TAB (25 Tab Bottle) SL PRN (17:32)
[2021-05-13 17:40] LABS: #Lymphocytes 0.7 thou/uL (1.20-3.40); #Monocytes 0.8 thou/uL (0.11-0.59); #Neutrophils 8.6 thou/uL (1.40-6.50); %Basophils 0.2 % (0.0-1.0); %Eosinophils 0.1 % (0.0-10.0); %Lymphocytes 6.5 % (21.0-51.0); %Monocytes 8.3 % (0.0-10.0); Hemoglobin 9.9 g/dL (12.0-16.0); Mean Corpuscular HGB CONC 32.4 g/dL (32.0-36.0); Mean Corpuscular Hemoglobin 31.6 pg (27.0-31.0); Mean Corpuscular Volume 97.3 fL (78.0-98.0); Mean Platelet Volume 10.1 fL (7.4-10.4); Platelet Count 123 thou/uL (130-400); RBC Distribution Width 15.8 % (11.5-14.5); Red Blood Cell (RBC) Count 3.13 mill/uL (4.20-5.40); White Blood Cell (WBC) Count 10.1 thou/uL (4.8-10.8)
[2021-05-13] MEDS ORDERED: Ondansetron PF 4 MG/2 ML Vial IVP PRN (17:43)
[2021-05-13] MEDS ORDERED: Acetaminophen 325 MG TAB PO PRN (17:43)
[2021-05-13 18:04] LABS: Anion Gap 9 mmol/L (10-20); BUN (Urea Nitrogen) 26 mg/dL (9.8-20.1); Carbon Dioxide 27 mmol/L (23-31); Chloride 107 mmol/L (98-107); Potassium 4.4 mmol/L (3.5-5.1); Sodium 139 mmol/L (136-145)
[2021-05-13 18:05] LABS: ALT (SGPT) 51 U/L (8-55); AST (SGOT) 47 U/L (5-34); Albumin 3.5 g/dL (3.4-4.8); Alkaline Phosphatase 135 U/L (40-110); Bilirubin, Total 1.2 mg/dL (0.2-1.2); Calc. Creatinine Clearance 36 mL/min (70-130); Calcium 8.6 mg/dL (7.8-10.44); Globulin 3.3 g/dL (2.4-3.5); Glucose 107 mg/dL (83-110); Protein, Total 6.8 g/dL (5.8-8.1)
[2021-05-13 18:08] LABS: Troponin I 0.109 ng/mL (< 0.028)
[2021-05-13] MEDS ORDERED: Loratadine 10 MG TAB PO PRN (18:22)
[2021-05-13 19:57] LABS: SARS-CoV-2 NAA Rapid Test Not Detected (NotDetected)
[2021-05-13] MEDS ORDERED: Furosemide 20 MG TAB PO SCH (20:00)
[2021-05-13] MEDS: Amlodipine 5 MG TAB PO SCH (20:39)
[2021-05-13] MEDS: Atorvastatin Calcium 40 MG TAB PO SCH (20:45)
[2021-05-13] MEDS ORDERED: Famotidine 20 MG TAB PO SCH (21:00)
[2021-05-13] MEDS: cefTRIAXone\\ROCEPHIN 1 GM in Sodium Chloride 0.9% 100 ML IVPB SCH (23:45)
[2021-05-13 23:53] LABS: Troponin I 0.107 ng/mL (< 0.028)
[2021-05-14 04:11] LABS: #Lymphocytes 0.8 thou/uL (1.20-3.40); #Monocytes 0.8 thou/uL (0.11-0.59); #Neutrophils 8.7 thou/uL (1.40-6.50); %Basophils 0.2 % (0.0-1.0); %Eosinophils 0.1 % (0.0-10.0); %Lymphocytes 7.4 % (21.0-51.0); %Monocytes 7.7 % (0.0-10.0); %Neutrophils 84.6 % (42.0-75.0); Hemoglobin 9.2 g/dL (12.0-16.0); Mean Corpuscular HGB CONC 33.3 g/dL (32.0-36.0); Mean Corpuscular Hemoglobin 32.2 pg (27.0-31.0); Mean Platelet Volume 10.5 fL (7.4-10.4); Platelet Count 120 thou/uL (130-400); RBC Distribution Width 15.6 % (11.5-14.5); Red Blood Cell (RBC) Count 2.84 mill/uL (4.20-5.40); White Blood Cell (WBC) Count 10.3 thou/uL (4.8-10.8)
[2021-05-14 04:42] LABS: Anion Gap 12 mmol/L (10-20); BUN (Urea Nitrogen) 28 mg/dL (9.8-20.1); Calc. Creatinine Clearance 29 mL/min (70-130); Calcium 8.4 mg/dL (7.8-10.44); Carbon Dioxide 24 mmol/L (23-31); Chloride 104 mmol/L (98-107); Glucose 102 mg/dL (83-110); Magnesium 1.9 mg/dL (1.6-2.6); Sodium 136 mmol/L (136-145)
[2021-05-14 05:03] LABS: Troponin I 0.119 ng/mL (< 0.028)
[2021-05-14] MEDS: Levothyroxine Sodium 25 MCG TAB PO SCH (06:21)
[2021-05-14] MEDS: Ezetimibe 10 MG TAB PO SCH (09:03)
[2021-05-14] MEDS: Amlodipine 5 MG TAB PO SCH ×2 (09:03→21:00)
[2021-05-14] MEDS: Aspirin 81 mg Enteric Coated Tablet PO SCH (09:03)
[2021-05-14] MEDS: Azithromycin 250 MG TAB PO SCH (09:03)
[2021-05-14] MEDS: Famotidine 20 MG TAB PO SCH (09:04)
[2021-05-14] MEDS: Lisinopril 10 MG TAB PO SCH (09:04)
[2021-05-14] MEDS: Allopurinol 300 MG TAB PO SCH (09:04)
[2021-05-14] MEDS ORDERED: Albuterol Sulfate 1.25 MG/3 ML NEB NEB PRN (09:58)
[2021-05-14] MEDS ORDERED: Albuterol Sulfate 1.25 MG/3 ML NEB NEB SCH (13:00)
[2021-05-14] MEDS: Atorvastatin Calcium 40 MG TAB PO SCH (21:00)
[2021-05-14] MEDS: cefTRIAXone\\ROCEPHIN 1 GM in Sodium Chloride 0.9% 100 ML IVPB SCH (23:42)
[2021-05-15 01:27] LABS: Anion Gap 12 mmol/L (10-20); BUN (Urea Nitrogen) 36 mg/dL (9.8-20.1); Calc. Creatinine Clearance 34 mL/min (70-130); Calcium 8.2 mg/dL (7.8-10.44); Carbon Dioxide 23 mmol/L (23-31); Chloride 108 mmol/L (98-107); Glucose 88 mg/dL (83-110); Potassium 3.9 mmol/L (3.5-5.1); Sodium 139 mmol/L (136-145)
[2021-05-15] MEDS ORDERED: Potassium Chloride 20 MEQ TAB PO SCH (04:00)
[2021-05-15 04:26] LABS: #Eosinphils 0.1 thou/uL (0.0-0.7); #Lymphocytes 0.8 thou/uL (1.20-3.40); #Monocytes 0.7 thou/uL (0.11-0.59); #Neutrophils 6.6 thou/uL (1.40-6.50); %Basophils 0.3 % (0.0-1.0); %Eosinophils 1.1 % (0.0-10.0); %Lymphocytes 9.6 % (21.0-51.0); %Monocytes 8.1 % (0.0-10.0); Hemoglobin 8.4 g/dL (12.0-16.0); Mean Corpuscular HGB CONC 33.2 g/dL (32.0-36.0); Mean Corpuscular Volume 96.4 fL (78.0-98.0); Mean Platelet Volume 10.4 fL (7.4-10.4); Platelet Count 134 thou/uL (130-400); RBC Distribution Width 15.5 % (11.5-14.5); Red Blood Cell (RBC) Count 2.62 mill/uL (4.20-5.40); White Blood Cell (WBC) Count 8.1 thou/uL (4.8-10.8)
[2021-05-15 04:51] LABS: Anion Gap 11 mmol/L (10-20); BUN (Urea Nitrogen) 34 mg/dL (9.8-20.1); Calc. Creatinine Clearance 34 mL/min (70-130); Calcium 8.2 mg/dL (7.8-10.44); Carbon Dioxide 23 mmol/L (23-31); Chloride 108 mmol/L (98-107); Glucose 93 mg/dL (83-110); Sodium 138 mmol/L (136-145)
[2021-05-15] MEDS: Levothyroxine Sodium 25 MCG TAB PO SCH (05:02)
[2021-05-15] MEDS: Ezetimibe 10 MG TAB PO SCH (09:30)
[2021-05-15] MEDS: Aspirin 81 mg Enteric Coated Tablet PO SCH (09:30)
[2021-05-15] MEDS: Furosemide 20 MG TAB PO SCH (09:31)
[2021-05-15] MEDS: Famotidine 20 MG TAB PO SCH (09:31)
[2021-05-15] MEDS: Allopurinol 300 MG TAB PO SCH (09:31)
[2021-05-15] MEDS: Lisinopril 10 MG TAB PO SCH (09:31)
[2021-05-15] MEDS: Amlodipine 5 MG TAB PO SCH ×2 (09:31→21:58)
[2021-05-15] MEDS: Azithromycin 250 MG TAB PO SCH (09:31)
[2021-05-15] MEDS: Atorvastatin Calcium 40 MG TAB PO SCH (21:58)
[2021-05-16] MEDS: cefTRIAXone\\ROCEPHIN 1 GM in Sodium Chloride 0.9% 100 ML IVPB SCH (00:50)
[2021-05-16] MEDS: Levothyroxine Sodium 25 MCG TAB PO SCH (06:14)
[2021-05-16] MEDS: Furosemide 20 MG TAB PO SCH (10:03)
[2021-05-16] MEDS: Aspirin 81 mg Enteric Coated Tablet PO SCH (10:03)
[2021-05-16] MEDS: Amlodipine 5 MG TAB PO SCH (10:03)
[2021-05-16] MEDS: Allopurinol 300 MG TAB PO SCH (10:03)
[2021-05-16] MEDS: Lisinopril 10 MG TAB PO SCH (10:04)
[2021-05-16] MEDS: Ezetimibe 10 MG TAB PO SCH (10:04)
[2021-05-16] MEDS: Azithromycin 250 MG TAB PO SCH (10:04)
[2021-05-16] MEDS: Famotidine 20 MG TAB PO SCH (10:04)
[2021-05-16 12:31] VITALS: BP 147/65; TEMP 98.1
== END 2021-05-16 13:09 | disposition home or self-care (01) | DRG 193 ==
LOC: 2NO 16:03
PROVIDERS: ADMIT Internal Medicine; ATTEND Internal Medicine
DX: J18.9 Pneumonia, unspecified organism (principal); Z20.822 Contact with and (suspected) exposure to COVID-19; J96.01 Acute respiratory failure with hypoxia; I50.33 Acute on chronic diastolic (congestive) heart failure; I24.8 Other forms of acute ischemic heart disease; I13.0 Hypertensive heart and chronic kidney disease with heart failure and stage 1 through stage 4 chronic kidney disease, or unspecified chronic kidney disease; I25.10 Atherosclerotic heart disease of native coronary artery without angina pectoris; E03.9 Hypothyroidism, unspecified; M19.90 Unspecified osteoarthritis, unspecified site; E78.5 Hyperlipidemia, unspecified; N18.30 Chronic kidney disease, stage 3 unspecified; E78.00 Pure hypercholesterolemia, unspecified; I08.0 Rheumatic disorders of both mitral and aortic valves; Z88.5 Allergy status to narcotic agent; Z88.0 Allergy status to penicillin; Z88.2 Allergy status to sulfonamides; Z88.6 Allergy status to analgesic agent; Z88.1 Allergy status to other antibiotic agents; Z91.011 Allergy to milk products; Z79.899 Other long term (current) drug therapy; Z79.82 Long term (current) use of aspirin; Z79.890 Hormone replacement therapy; Z95.1 Presence of aortocoronary bypass graft; Z95.5 Presence of coronary angioplasty implant and graft; Z90.710 Acquired absence of both cervix and uterus; Z90.49 Acquired absence of other specified parts of digestive tract; Z90.89 Acquired absence of other organs; Z95.828 Presence of other vascular implants and grafts; Z82.49 Family history of ischemic heart disease and other diseases of the circulatory system; Z87.891 Personal history of nicotine dependence; Z91.14 Patient's other noncompliance with medication regimen
CPT/HCPCS: 36415; 71045; 80048; 80053; 83735; 83880; 84484; 85025; 85379; J0696; J3490; J7620; U0002

== ENCOUNTER 2021-05-17 01:02 | Observation (INO) | payer MEDICARE, BC ==
[2021-05-17 02:14] VITALS: BMI 19.9
[2021-05-17 04:46] LABS: #Basophils 0.1 thou/uL (0.0-0.2); #Eosinphils 0.2 thou/uL (0.0-0.7); #Lymphocytes 0.8 thou/uL (1.20-3.40); #Monocytes 0.6 thou/uL (0.11-0.59); #Neutrophils 4.9 thou/uL (1.40-6.50); %Basophils 0.8 % (0.0-1.0); %Eosinophils 3.3 % (0.0-10.0); %Lymphocytes 11.9 % (21.0-51.0); %Monocytes 9.6 % (0.0-10.0); %Neutrophils 74.5 % (42.0-75.0); Hemoglobin 8.7 g/dL (12.0-16.0); Mean Corpuscular HGB CONC 33.7 g/dL (32.0-36.0); Mean Corpuscular Hemoglobin 31.7 pg (27.0-31.0); Mean Corpuscular Volume 94.1 fL (78.0-98.0); Mean Platelet Volume 9.6 fL (7.4-10.4); Platelet Count 170 thou/uL (130-400); RBC Distribution Width 15.4 % (11.5-14.5); Red Blood Cell (RBC) Count 2.74 mill/uL (4.20-5.40); White Blood Cell (WBC) Count 6.6 thou/uL (4.8-10.8)
[2021-05-17 04:52] LABS: Anion Gap 11 mmol/L (10-20); BUN (Urea Nitrogen) 28 mg/dL (9.8-20.1); Calc. Creatinine Clearance 37 mL/min (70-130); Calcium 8.8 mg/dL (7.8-10.44); Carbon Dioxide 25 mmol/L (23-31); Chloride 109 mmol/L (98-107); Glucose 125 mg/dL (83-110); Magnesium 2.3 mg/dL (1.6-2.6); Potassium 3.8 mmol/L (3.5-5.1); Sodium 141 mmol/L (136-145)
[2021-05-17] MEDS ORDERED: Furosemide 20 MG TAB PO SCH ×2 (08:45→09:00)
[2021-05-17] MEDS ORDERED: Lisinopril 10 MG TAB PO SCH (09:00)
[2021-05-17] MEDS ORDERED: Amlodipine 5 MG TAB PO SCH (09:00)
[2021-05-17] MEDS ORDERED: Aspirin 81 mg Enteric Coated Tablet PO SCH (09:00)
[2021-05-17] MEDS ORDERED: Allopurinol 300 MG TAB PO SCH (09:00)
[2021-05-17] MEDS ORDERED: Levothyroxine Sodium 25 MCG TAB PO SCH (09:00)
[2021-05-17] MEDS ORDERED: Cefdinir 300 MG CAP PO SCH (09:00)
[2021-05-17] MEDS ORDERED: FLU VACC QS2021-22(65YR UP)/PF 240 MCG/0.7 ML SYRINGE IM ONE (09:00)
[2021-05-17] MEDS ORDERED: Azithromycin 250 MG TAB PO SCH (09:00)
[2021-05-17] MEDS ORDERED: Ezetimibe 10 MG TAB PO SCH (09:00)
[2021-05-17 11:39] VITALS: TEMP 97.3
[2021-05-17 16:07] VITALS: BP 121/59
[2021-05-17] MEDS ORDERED: Atorvastatin Calcium 40 MG TAB PO SCH (21:00)
[2021-05-17] MEDS ORDERED: Famotidine 20 MG TAB PO SCH (21:00)
[2021-05-18] MEDS ORDERED: Levothyroxine Sodium 25 MCG TAB PO SCH (06:00)
== END 2021-05-17 16:45 | disposition home or self-care (01) ==
LOC: 2SW 02:07
PROVIDERS: ADMIT Student in an Organized Health Care Education/Training Program; ATTEND Student in an Organized Health Care Education/Training Program
DX: J18.9 Pneumonia, unspecified organism (principal); J96.01 Acute respiratory failure with hypoxia; I13.0 Hypertensive heart and chronic kidney disease with heart failure and stage 1 through stage 4 chronic kidney disease, or unspecified chronic kidney disease; N18.30 Chronic kidney disease, stage 3 unspecified; I50.32 Chronic diastolic (congestive) heart failure; I25.10 Atherosclerotic heart disease of native coronary artery without angina pectoris; E03.9 Hypothyroidism, unspecified; M19.90 Unspecified osteoarthritis, unspecified site; Z87.891 Personal history of nicotine dependence; Z79.2 Long term (current) use of antibiotics; Z79.82 Long term (current) use of aspirin; Z79.899 Other long term (current) drug therapy; Z88.0 Allergy status to penicillin; Z88.1 Allergy status to other antibiotic agents; Z88.2 Allergy status to sulfonamides; Z88.5 Allergy status to narcotic agent; Z91.011 Allergy to milk products; Z95.1 Presence of aortocoronary bypass graft
CPT/HCPCS: 71045; 80048; 83735; 85025; G0378; 36415

== ENCOUNTER 2023-05-22 16:00 | Outpatient (CLI) | payer MEDICARE, BC | END 2023-05-22 16:01 | disposition home or self-care (01) | LOC: SLEEPLAB 16:00 | PROVIDERS: ATTEND Nurse Practitioner Acute Care | DX: G47.33 Obstructive sleep apnea (adult) (pediatric) (principal); E78.5 Hyperlipidemia, unspecified; M54.2 Cervicalgia; I13.10 Hypertensive heart and chronic kidney disease without heart failure, with stage 1 through stage 4 chronic kidney disease, or unspecified chronic kidney disease; N18.9 Chronic kidney disease, unspecified; K76.9 Liver disease, unspecified; R00.1 Bradycardia, unspecified | CPT/HCPCS: 95810 ==

== ENCOUNTER 2023-08-01 16:00 | Outpatient (CLI) | payer MEDICARE | END 2023-08-01 16:01 | disposition home or self-care (01) | LOC: SLEEPLAB 16:00 | PROVIDERS: ATTEND Nurse Practitioner Acute Care | DX: G47.33 Obstructive sleep apnea (adult) (pediatric) (principal) | CPT/HCPCS: 95811 ==

== ENCOUNTER 2025-01-13 21:27 | Inpatient (IN) | payer MEDICARE ==
[~2025-01-13 21:27] MED LIST: Iopamidol-370 76% 500 ML MDV (1 ML CHARGE) ONE
[2025-01-13 21:44] LABS: #Basophils Less than 0.03 10x3/uL (0.0-0.2); #Eosinophils 0.06 10x3/uL (0.0-0.7); #Monocytes 0.58 10x3/uL (0.11-0.59); #Neutrophils 7.15 10x3/uL (1.40-6.50); %Basophils 0.2 % (0.0-1.0); %Eosinophils 0.6 % (0.0-10.0); %Lymphocytes 15.5 % (21.0-51.0); %Monocytes 6.3 % (0.0-10.0); %Neutrophils 77.1 % (42.0-75.0); Hematocrit 30.2 % (36.0-47.0); Hemoglobin 9.8 g/dL (12.0-16.0); Mean Corpuscular Hemoglobin 29.6 pg (27.0-31.0); Mean Corpuscular Volume 91.2 fL (78.0-98.0); Platelet Count 130 10x3/uL (130-400); Red Blood Cell (RBC) Count 3.31 mill/uL (4.20-5.40); White Blood Cell (WBC) Count 9.28 10x3/uL (4.8-10.8)
[2025-01-13 21:58] LABS: INR-International Normal Ratio 1.0; PTT 32.0 sec (22.9-36.1); Prothrombin Time 13.2 sec (12.0-14.7)
[2025-01-13 22:15] LABS: Actual Bicarbonate (HCO3v) 24.1 mEq/L (22-28); Base Excess -0.7 mEq/L (-2.0 to +3.0); Calcium, Ionized (venous) 1.06 mmol/L (1.16-1.32); Chloride (VBG) 108 mmol/L (98-106); Hematocrit-VBG 32 % (36.0-47.0); Hemoglobin (Hb) 11.0 g/dL (11.7-16.1); Sodium 136 mmol/L (133-146)
[2025-01-13 22:16] LABS: ALT (SGPT) 123 U/L (Less than 34); AST (SGOT) 215 U/L (11-34); Albumin 3.7 g/dL (3.1-4.5); Alkaline Phosphatase 133 U/L (40-110); Anion Gap 12 mmol/L (10-20); BUN (Urea Nitrogen) 46 mg/dL (9.8-20.1); Bilirubin, Total 0.6 mg/dL (0.3-1.2); Calc. Creatinine Clearance 0 mL/min (70-130); Calcium 8.6 mg/dL (7.8-10.44); Carbon Dioxide 23 mmol/L (23-31); Chloride 108 mmol/L (98-107); Globulin 3.3 g/dL (2.4-3.5); Glucose 122 mg/dL (83-110); Lipase 48 U/L (8-78); Magnesium 2.2 mg/dL (1.6-2.6); Potassium 6.6 mmol/L (3.5-5.1); Sodium 136 mmol/L (136-145)
[2025-01-13] MEDS ORDERED: CALCIUM GLUC 1 GM/NS 50 ML IV Bag ONE (22:17)
[2025-01-13] MEDS ORDERED: Dextrose 50% Abboject 50 ML SYRINGE ONE (22:17)
[2025-01-13] MEDS ORDERED: Furosemide 40 MG (4 mL) VIAL ONE (22:44)
[2025-01-13] MEDS ORDERED: Albuterol 2.5 MG (0.5 mL) NEB ONE (22:44)
[2025-01-14] MEDS ORDERED: Ondansetron PF 4 MG/2 ML Vial IVP PRN (00:21)
[2025-01-14] MEDS ORDERED: Calcium Carbonate 500 MG ChewTAB PO PRN (00:21)
[2025-01-14 01:53] VITALS: BMI 18.2
[2025-01-14 04:47] LABS: Bacteria/HPF None Seen HPF (None Seen); CAUTI Indications for Culture Alt mental st,lethar; Glucose, Urine (Dipstick) Normal (Negative); Leukocyte Negative Leu/uL (Negative); Protein, Urine (Dipstick) Negative (Neg-Trace); RBC/HPF None Seen HPF (0-3); Specific Gravity, Urine 1.013 (1.002-1.036); WBC/HPF None Seen HPF (0-3)
[2025-01-14 04:52] LABS: Urine Culture Reflex No No
[2025-01-14 05:11] LABS: #Basophils Less than 0.03 10x3/uL (0.0-0.2); #Eosinophils Less than 0.03 10x3/uL (0.0-0.7); #Monocytes 0.53 10x3/uL (0.11-0.59); #Neutrophils 6.57 10x3/uL (1.40-6.50); %Basophils 0.2 % (0.0-1.0); %Eosinophils 0.1 % (0.0-10.0); %Lymphocytes 14.5 % (21.0-51.0); %Monocytes 6.3 % (0.0-10.0); %Neutrophils 78.7 % (42.0-75.0); Hematocrit 29.1 % (36.0-47.0); Hemoglobin 9.3 g/dL (12.0-16.0); Mean Corpuscular Hemoglobin 29.4 pg (27.0-31.0); Mean Corpuscular Volume 92.1 fL (78.0-98.0); Platelet Count 135 10x3/uL (130-400); Red Blood Cell (RBC) Count 3.16 mill/uL (4.20-5.40); White Blood Cell (WBC) Count 8.36 10x3/uL (4.8-10.8)
[2025-01-14 05:16] LABS: ALT (SGPT) 103 U/L (Less than 34); AST (SGOT) 156 U/L (11-34); Albumin 3.5 g/dL (3.1-4.5); Alkaline Phosphatase 117 U/L (40-110); Anion Gap 16 mmol/L (10-20); BUN (Urea Nitrogen) 41 mg/dL (9.8-20.1); Bilirubin, Total 0.4 mg/dL (0.3-1.2); CK (CPK) 113 U/L (29-168); Calc. Creatinine Clearance 27 mL/min (70-130); Calcium 9.0 mg/dL (7.8-10.44); Carbon Dioxide 22 mmol/L (23-31); Chloride 106 mmol/L (98-107); Globulin 3.0 g/dL (2.4-3.5); Glucose 154 mg/dL (83-110); Magnesium 2.1 mg/dL (1.6-2.6); Potassium 4.7 mmol/L (3.5-5.1); Sodium 139 mmol/L (136-145)
[2025-01-14 07:46] LABS: Potassium (VBG) 6.38 mmol/L (3.70-5.30)
[2025-01-14] MEDS: Aspirin 81 mg Enteric Coated Tablet PO SCH (09:02)
[2025-01-14 09:52] LABS: ALT (SGPT) 95 U/L (Less than 34); AST (SGOT) 129 U/L (11-34); Albumin 3.4 g/dL (3.1-4.5); Alkaline Phosphatase 109 U/L (40-110); Anion Gap 12 mmol/L (10-20); BUN (Urea Nitrogen) 35 mg/dL (9.8-20.1); Bilirubin, Total 0.5 mg/dL (0.3-1.2); Calc. Creatinine Clearance 30 mL/min (70-130); Calcium 8.9 mg/dL (7.8-10.44); Carbon Dioxide 25 mmol/L (23-31); Chloride 107 mmol/L (98-107); Globulin 2.9 g/dL (2.4-3.5); Glucose 67 mg/dL (83-110); Potassium 4.3 mmol/L (3.5-5.1); Sodium 140 mmol/L (136-145)
[2025-01-14 10:05] VITALS: TEMP 97.8
[2025-01-14 11:50] VITALS: BP 128/60
== END 2025-01-14 14:26 | disposition home or self-care (01) | DRG 683 ==
LOC: SUATTDRO 21:27 → ERS 21:27 → 2NO 23:20
PROVIDERS: ADMIT Internal Medicine; ATTEND Internal Medicine
DX: N17.9 Acute kidney failure, unspecified (principal); I13.0 Hypertensive heart and chronic kidney disease with heart failure and stage 1 through stage 4 chronic kidney disease, or unspecified chronic kidney disease; I50.32 Chronic diastolic (congestive) heart failure; R00.1 Bradycardia, unspecified; I25.10 Atherosclerotic heart disease of native coronary artery without angina pectoris; E78.5 Hyperlipidemia, unspecified; Z98.890 Other specified postprocedural states; Z95.1 Presence of aortocoronary bypass graft; Z88.5 Allergy status to narcotic agent; Z88.0 Allergy status to penicillin; Z88.2 Allergy status to sulfonamides; Z88.8 Allergy status to other drugs, medicaments and biological substances; Z91.0110 Allergy to milk products, unspecified; E87.5 Hyperkalemia; R74.01 Elevation of levels of liver transaminase levels; E03.9 Hypothyroidism, unspecified; R53.81 Other malaise; R10.9 Unspecified abdominal pain; R11.2 Nausea with vomiting, unspecified; E86.0 Dehydration; N18.2 Chronic kidney disease, stage 2 (mild); R19.7 Diarrhea, unspecified; Z79.899 Other long term (current) drug therapy; Z79.82 Long term (current) use of aspirin; Z79.890 Hormone replacement therapy
CPT/HCPCS: 36415; 71045; 71275; 74174; 80053; 81001; 82550; 82805; 83690; 83735; 83880; 84443; 84484; 85025; 85610; 85730; 93005; 93010; 93306; 96365; 96375; J0613; J1815; J1940; J7042; J7611; J7999; Q9967